=== PATIENT | female | born 1980 | race Caucasian/White ===

== ENCOUNTER 2017-03-03 17:09 | Emergency (ER) | payer OTHER ==
[~2017-03-03] VITALS: Ht 170.2 cm; Wt 50.0 kg
[~2017-03-03 17:09] MED LIST: ADVAIR 250/501 DISK IH; ALPRAZOLAM1 MG; ALPRAZOLAM1 MG PO; AMBIEN PO; AMBIEN10 M1 GT; AMBIEN10 MG PO; ANAPROX DS550 M1 PO; BACTRIM,SEPT1 TABLET; BUPROPION XL150 MG; CEFPODOXIME PR100 MG; CEPHALEXIN500 MG; CIPRO500 MG PO; CIPROFLOXACIN250 MG; CLEOCIN300 MG; CYMBALTA30 MG; CYMBALTA30 MG PO; CYMBALTA60 MG; CYMBALTA60 MG PO; DESYREL100 MG PO; DILAUDID4 MG; DILAUDID4 MG PO; DILAUDID8 MG; DITROPAN5 MG; DULOXETINE HCL60 MG PO; ELMIRON100 MG; ELMIRON100 MG PO; ENDOCET 5-3251 EACH; FAMOTIDINE20 MG PO; FENTANYL1 EAC4 TD; FISH OIL300 MG PO; FLOMAX0.4 MG PO; FLUCONAZOLE150 MG; GABAPENTIN300 MG; GABAPENTIN300 MG PO; HYDROCODON-ACE1 EAC9; HYDROCODON-ACE1 EACH; HYDROMORPHONE HC8 MG; IBUPROFEN400 MG; KADIAN60 MG PO; KEFLEX500 MG PO; LEVAQUIN500 MG PO; LEVAQUIN750 MG PO; LIDOCAINE 5% OINTMEN; LORAZEPAM2 MG; MACROBID100 MG PO; MELATONIN500 MCG SL; METHYLPHENIDATE10 M1; METHYLPHENIDATE20 M1; METHYLPHENIDATE20 M1 PO; MORPHINE SULFAT60 M1 PO; MORPHINE SULFAT60 MG; MS CONTIN,ORAMO60 MG PO; MS CONTIN100 MG PO; NAPROSYN500 MG PO; NEURONTIN300 MG PO; NITROFURANTOIN100 M3; OPANA ER10 MG PO; OXYBUTYNIN; OXYCODONE HCL 30 MG; OXYCODONE HCL PO; OXYCODONE HCL10 MG PO; OXYCODONE HCL30 MG; OXYCODONE HCL30 MG PO; OXYCODONE HCL5 MG; OXYCODONE HCL5 MG PO; OXYCODONE15 MG; OXYCODONE30 MG PO; OXYCONTIN15 MG PO; OXYCONTIN30 MG PO; OXYMORPHONE HCL30 MG PO; PERCOCET 10-321 EACH PO; PHENADOZ25 MG PR; PHENERGAN25 MG PR; PHENERGAN50 MG PR; PROBIOTIC1 EAC3 PO; PROMETHAZINE HC25 M1; PROMETHAZINE HC25 M1 PO; PROMETHAZINE HC25 M1 PR; PROMETHAZINE HC50 M1 PO; PROMETHAZINE12.5 M1; PROVENTIL,2.5 MG/3 M IH; PYRIDIUM200 MG PO; QUETIAPINE FUMARATE; RITALIN LA20 MG PO; RITALIN10 MG PO; RITALIN20 MG PO; SEROQUEL100 MG; SEROQUEL100 MG PO; SEROQUEL50 MG; TRAMADOL HCL50 MG; TRAMADOL HCL50 MG PO; VALIUM10 MG; VALIUM10 MG PO; VITAMIN E200 UNI3 PO; XANAX1 MG PO; ZOFRAN ODT4 MG PO; ZOFRAN4 MG PO; ZOLPIDEM TARTRA10 MG PO
[2017-03-03 19:03] LABS: HEMATOCRIT 46.9 % (36.0-46.0); MCH 30.8 PG (29.0-34.0); MCHC 34.1 G/DL (30.0-36.0); MCV 90.2 FL (83-99); PLATELET COUNT 405 K/uL (156-360); RBC DIS.WIDTH-CV 13.8 % (11.8-14.6); RBC DIS.WIDTH-SD 45.9 % (39-53); WHITE BLOOD COUNT 8.9 K/uL (4.1-10.2)
[2017-03-03 19:15] LABS: CHLORIDE 98 mEq/L (99-109); POTASSIUM 3.8 mEq/L (3.7-5.4); SODIUM 138 mEq/L (136-147)
[2017-03-03 19:16] LABS: GLUCOSE 110 mg/dL (70-99)
[2017-03-03 19:20] LABS: CREATININE 0.8 mg/dL (0.6-1.3); GFR ESTIMATE (CALCULATED) > 59 mL/min/
[2017-03-03 19:21] LABS: UREA NITROGEN (BUN) 14 mg/dL (9-23)
[2017-03-03] MEDS ORDERED: VIBRAMYCIN100 MG PO (21:02)
[2017-03-03] MEDS ORDERED: BACTRIM,SEPT1 TABLET PO (21:02)
[2017-03-03 21:28] VITALS: BP 111/62
== END 2017-03-03 22:14 | disposition home or self-care (01) ==
LOC: EME 17:09
PROVIDERS: Physician Assistant
PROC: 0H9NXZZ Drainage of Left Foot Skin, External Approach (ICD-10-PCS; principal; 2017-03-03)
DX: L02.612 Cutaneous abscess of left foot (principal); L03.116 Cellulitis of left lower limb; Z86.14 Personal history of Methicillin resistant Staphylococcus aureus infection; Z88.0 Allergy status to penicillin; Z85.51 Personal history of malignant neoplasm of bladder; F17.200 Nicotine dependence, unspecified, uncomplicated
CPT/HCPCS: 73630; 80048; 83605; 85027; 99281; 99284; J3010